=== PATIENT | female | born 1990 | race Caucasian/White ===

== ENCOUNTER 2024-03-11 13:14 | Outpatient (AMB) | payer BC, SELFPAY ==
[2024-03-11 13:22] VITALS: BP 137/66; PULSE 63; RESP 18; TEMP 36.6; O2SAT 96; BMI 23.5
--- NOTE | 2024-03-11 13:22 | GSCOFFNT_ITS ---
Vital Signs - [facility] 03/11/24 13:22 Height 1.73 m Height Method Stated Weight 70.08 kg Weight Measurement Method Standing Scale BMI 23.5 BP 137/66 H Blood Pressure Source Automatic Cuff Blood Pressure Location Left Upper Arm Position Sitting Respiration 18 Pulse 63 Pulse Source Monitor Temp 97.8 F Temp Source Temporal Artery Scan Pulse Oximetry (%) 96 Oxygen Delivery Method Room Air Med/Allergies Allergies & Medications Allergies No Known Allergies Allergy (Verified 03/11/24 13:25) Medication Reconciliation alprazolam 0.5 mg tablet (Xanax) 0.05 - 1.5 mg PO PRN PRN Anxiety 03/03/23 [History Confirmed 03/11/24] escitalopram oxalate 20 mg tablet (Lexapro) 20 mg PO 1XD 03/03/23 [History Confirmed 03/11/24] quetiapine 100 mg tablet (Seroquel) 200 mg PO 1XD 03/03/23 [History Confirmed 03/11/24] hydrocortisone-pramoxine 1 %-1 % rectal cream 1 applic DC QID PRN hemorrhoids #30 grams 03/11/24 [Rx] MA Intake Visit Data Collection New Patient or Established: New Patient (never been to [facility]) Seen by Clinical Staff ONLY (RN/MA): No Reason for Visit:: referral hemorrhoids Pain Present Currently: Yes Pain Location: Unable to identify Pain scale:: 9 Animal Nutritionist Required: No PCP or OBGYN visit in last 3 months: Yes Hx Now: No Do You Feel Safe at Home: Yes Authorities Contacted: N/A Smoking Status Smoking Status: Unknown if ever smoked Immunization / Flu Flu Vaccine in the Last 12 Months: No Flu Vaccine Exclusion Criteria: No Exclusion Criteria Past Medical History Past Medical History CARDIAC: Negative Congestive Heart Failure RESPIRATORY: Negative Chronic Obstructive Pulmonary Disease (COPD) GENITOURINARY: Negative Renal Disease ENDOCRINE: Negative Diabetes Mellitus Type 1 or Diabetes Mellitus Type 2 Social History SMOKING STATUS: Smoking status: Unknown if ever smoked HPI HPI Narrative 34F referred for a painful external hemorrhoid. Pt reports she never had any symptoms before but 2 weeks ago she suddenly had severe perianal pain, which has only worsened since then. She has regular BMs without any straining or diarrhea, but she has lately has had severe pain with defecation which she confirms feels like passing shards of glass. She drinks plenty of water and is currently using stool softeners. Pt has also noticed some bleeding that seems to be coming from the hemorrhoid itself. She is using lidocaine-hydrocortisone cream that had been prescriped as well as sitz baths; she tried Tuck's wipes as well but did not have any relief. 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 There is a sentinel pile at the posterior midline. GINA not performed due to severe pain) Assessment & Plan Diagnosis / Problem List (1) External hemorrhoids with other complication: Status: Acute Assessment & Plan: 34F with painful external hemorrhoid, practicing healthy bowel habits and already using OTC and prescription remedies. Unfortunately on exam there was no sign of thrombosis currently; I suspect pt did have thrombosis at some point and advised her that the natural history of a thrombosed hemorrhoid is improved pain within 7-10 days. I will prescribe hydrocortisone-pramoxine and recommended she begin adding epsom salt to her sitz baths. All questions were answered and pt is agreeable with this plan (2) Anal fissure: Status: Acute Assessment & Plan: Based on history and the sentinel pile seen on exam I will prescribe compound cream as well Plan: F/u in 2 weeks Office Procedures GNS Level of Care Nursing/Assessment Patient Status: Initial/New Patient Nursing Assessment/Reassesment: Medication Reconciliation, Update PMH in EMR and Vital Signs Coordination of Care: Complex Care and Chronic Disease 1-5, Consent,records obtained, informed consent, Education Simp Pt/Fam, Results/Orders obtained and Staff clarify orders New Patient Charge New Patient Point Assignment: [id number] New Patient Point Charge: 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
== END 2024-03-11 13:54 | disposition home or self-care (01) ==
LOC: HODSRG 13:14
PROVIDERS: PCP Family Medicine; Referring Provider Family Medicine; Supervising Provider Surgery; Visit Provider Surgery
DX: K64.4 Residual hemorrhoidal skin tags (principal); K60.2 Anal fissure, unspecified
CPT/HCPCS: 99203; G0463